=== PATIENT | female | born 1980 | race Native Hawaiian/Other Pacific Islander ===

== ENCOUNTER 2016-11-18 04:10 | Inpatient (IN) | payer OTHER ==
[2016-11-18] VITALS (19 sets, daily range): BP systolic 113–159; BP diastolic 70–100; PULSE 76–108; TEMP 98.3–98.8
[~2016-11-18] VITALS: Ht 160 cm; Wt 111.8 kg
[2016-11-18] MEDS ORDERED: PRENATAL (04:44)
[2016-11-18 05:18] LABS: BASO % 0.2 % (0.0-2.0); EOS # 0.2 (0.0-0.7); EOS % 1.5 % (0-4.0); GRAN # 11.1 (1.4-6.5); GRAN % 76.9 % (42.2-75.2); HEMOGLOBIN 12.3 g/dl (12.5-16.0); MEAN CELL VOLUME 92 fl (80.0-100.0); MEAN CORPUSCULAR HEMOGLOBIN 32 pg (27.0-31.0); MEAN CORPUSCULAR HGB CONC 34 g/dl (33.0-37.0); MEAN PLATELET VOLUME 9.4 fl (7.4-10.4); MONO # 0.9 (0.1-0.6); MONO % 6.4 % (1.7-9.3); PLATELET COUNT 314 K/mm3 (130-400); RED BLOOD COUNT 3.91 M/mm3 (4.10-5.30); REDCELL DISTRIBUTION WIDTH-CV 13.5 % (11.5-14.5); WHITE BLOOD COUNT 14.4 K/mm3 (4.8-10.8)
[2016-11-18 05:19] LABS: HEMATOCRIT 35.9 % (37.0-47.0)
[2016-11-19 04:30] VITALS: BP 138/76; PULSE 68; TEMP 98.5
[2016-11-19 07:00] VITALS: BP 139/94; PULSE 104; TEMP 98.1
[2016-11-19 08:34] LABS: BASO % 0.1 % (0.0-2.0); EOS # 0.1 (0.0-0.7); EOS % 0.7 % (0-4.0); GRAN # 12.2 (1.4-6.5); GRAN % 80.6 % (42.2-75.2); LYMPH # 1.8 (1.2-3.4); LYMPH % 11.7 % (20.0-51.0); MEAN CELL VOLUME 96 fl (80.0-100.0); MEAN CORPUSCULAR HGB CONC 33 g/dl (33.0-37.0); MEAN PLATELET VOLUME 9.4 fl (7.4-10.4); MONO # 0.9 (0.1-0.6); MONO % 5.6 % (1.7-9.3); PLATELET COUNT 258 K/mm3 (130-400); RED BLOOD COUNT 2.96 M/mm3 (4.10-5.30); WHITE BLOOD COUNT 15.2 K/mm3 (4.8-10.8)
[2016-11-19 08:44] LABS: HEMATOCRIT 28.3 % (37.0-47.0); HEMOGLOBIN 9.4 g/dl (12.5-16.0); MEAN CORPUSCULAR HEMOGLOBIN 32 pg (27.0-31.0)
[2016-11-20 07:00] VITALS: BP 145/90; PULSE 95; TEMP 98.7
[2016-11-20] MEDS ORDERED: PERCOCET 325 MG1 TA2 PO (12:02)
[2016-11-20] MEDS ORDERED: IBU600 MG PO (12:02)
== END 2016-11-20 13:30 | disposition home or self-care (01) | DRG 766 ==
LOC: LDRO 04:10 → OB 04:30 → LDR 04:30 → OB 07:20
PROVIDERS: Nurse Anesthetist, Certified Registered; Obstetrics & Gynecology
PROC: 10D00Z1 Extraction of Products of Conception, Low, Open Approach (ICD-10-PCS; principal; 2016-11-18)
DX: O75.82 Onset (spontaneous) of labor after 37 completed weeks of gestation but before 39 completed weeks gestation, with delivery by (planned) cesarean section (principal); O34.211 Maternal care for low transverse scar from previous cesarean delivery; N85.8 Other specified noninflammatory disorders of uterus; O99.824 Streptococcus B carrier state complicating childbirth; Z3A.38 38 weeks gestation of pregnancy; Z37.0 Single live birth
CPT/HCPCS: J0690; J1885; J2270; J2370; J2405; J2540; J2590; J2765; J3010; J7120

== ENCOUNTER 2019-06-16 17:05 | Inpatient (IN) | payer OTHER ==
[~2019-06-16] VITALS: Ht 160 cm; Wt 102.1 kg
[~2019-06-16 17:05] MED LIST: IBU600 MG PO; PERCOCET 325 MG1 TA2 PO; PRENATAL
[2019-06-16 17:44] LABS: COLLECTION METHOD CLEAN CATCH
[2019-06-16 17:50] LABS: HEMATOCRIT 40.5 % (37.0-47.0); HEMOGLOBIN 14.2 g/dl (12.5-16.0); MEAN CELL VOLUME 90 fl (80.0-100.0); MEAN CORPUSCULAR HEMOGLOBIN 32 pg (27.0-31.0); MEAN CORPUSCULAR HGB CONC 35 g/dl (33.0-37.0); MEAN PLATELET VOLUME 10.1 fl (7.4-10.4); PLATELET COUNT 312 K/mm3 (130-400); RED BLOOD COUNT 4.48 M/mm3 (4.10-5.30); REDCELL DISTRIBUTION WIDTH-CV 12.7 % (11.5-14.5)
[2019-06-16 18:02] LABS: ALANINE AMINOTRANSFERASE 142 U/L (9-52); ALBUMIN 3.7 gm/dL (3.5-5.0); ALKALINE PHOSPHATASE 321 U/L (50-136); ANION GAP 12 mmol/L (7-16); AST,SGOT 124 U/L (15-37); BILIRUBIN,TOTAL 9.3 mg/dL (0.0-1.0); BLOOD UREA NITROGEN 10 mg/dL (7-17); CARBON DIOXIDE 28 mmol/L (22-30); CHLORIDE 93 mmol/L (98-107); CREATININE, serum 0.64 (0.52-1.25); GLUCOSE 137 mg/dL (74-106); LIPASE 298 U/L (23-300); SODIUM 133 mmol/L (137-145); TOTAL PROTEIN 8.8 gm/dL (6.4-8.2)
[2019-06-16 18:05] LABS: ACETAMINOPHEN < 10 ug/mL (10-30); POTASSIUM 2.8 mmol/L (3.4-5.0)
[2019-06-16 18:06] LABS: MONOSCREEN NEGATIVE
[2019-06-16 18:06] LABS: PH 7 (5-8); SQUAMOUS EPITHELIAL 0-2 /hpf; URINE APPEARANCE Clear; URINE BACTERIA Rare /hpf; URINE BILIRUBIN Positive (NEGATIVE); URINE BLOOD 2+ (NEGATIVE); URINE COLOR Amber; URINE GLUCOSE Negative (NEGATIVE); URINE KETONE Negative (NEGATIVE); URINE LEUKOCYTE ESTERASE Negative (NEGATIVE); URINE NITRATE Negative (NEGATIVE); URINE PROTEIN(semi-quant) Negative (NEGATIVE); URINE RBC 0-2 /hpf
[2019-06-16 18:07] LABS: INR 1.1 (0.8-3.0); PROTHROMBIN TIME 12.7 SECONDS (9.7-12.8)
[2019-06-16 18:09] LABS: PARTIAL THROMBOPLASTIN TIME 31.4 SECONDS (26.0-37.0)
[2019-06-16 19:38] LABS: BAND 5 % (0-10); NEUTROPHILS 76 % (42.0-75.2)
[2019-06-16 19:40] LABS: LYMPHOCYTE 14 % (20.0-51.0); PLATELET ESTIMATE NORMAL (NORMAL)
[2019-06-16 21:52] VITALS: BP 106/55; PULSE 89; TEMP 98.4
--- NOTE | 2019-06-16 23:04 | NUR ---
Received report from AUDREY Moseley from ED. Pt arrived at 0 via wc. Assessment complete. Alert and oriented. Denies any pain or nausea at this time. Family at bedside. IV to RAC intact with fluids infusing. Needs met. Call light within reach.
[2019-06-17] VITALS (7 sets, daily range): BP systolic 77–107; BP diastolic 50–71; PULSE 58–99; TEMP 97.6–98.3
--- NOTE | 2019-06-17 05:31 | NUR ---
Pt uneventful during this shift. remained at bedside. Meds administered as ordered. Call light within reach.
[2019-06-17 06:32] LABS: INR 1.1 (0.8-3.0); PROTHROMBIN TIME 12.5 SECONDS (9.7-12.8)
[2019-06-17 06:52] LABS: ALBUMIN 3.1 gm/dL (3.5-5.0); CALCIUM 8.3 mg/dL (8.4-10.2); CREATININE, serum 0.56 (0.52-1.25); POTASSIUM 4.1 mmol/L (3.4-5.0); TOTAL PROTEIN 7.4 gm/dL (6.4-8.2)
[2019-06-17 06:56] LABS: HEMATOCRIT 37.2 % (37.0-47.0); HEMOGLOBIN 12.9 g/dl (12.5-16.0); MEAN CELL VOLUME 93 fl (80.0-100.0); MEAN CORPUSCULAR HEMOGLOBIN 32 pg (27.0-31.0); MEAN CORPUSCULAR HGB CONC 35 g/dl (33.0-37.0); MEAN PLATELET VOLUME 10.2 fl (7.4-10.4); PLATELET COUNT 242 K/mm3 (130-400); RED BLOOD COUNT 4.02 M/mm3 (4.10-5.30); REDCELL DISTRIBUTION WIDTH-CV 13.1 % (11.5-14.5)
[2019-06-17 07:07] LABS: BILIRUBIN,DIRECT 6.7 mg/dL (0.0-0.4); BILIRUBIN,TOTAL 7.6 mg/dL (0.0-1.0)
--- NOTE | 2019-06-17 07:09 | NUR ---
Report given to AUDREY Harp and AUDREY Joshi.
--- NOTE | 2019-06-17 07:20 | NUR ---
Seem patient awake sitting on bed. MRI staff already in the room to pick her up for MRCP. Patient still has nose piercing in which needed to be removed before the procedure. MRI staff said we just have to re-schedule it since we're still having a hard time removing her piercing. After few minutes, Nurse Katiuska was able to remove it and called MRI staff that patient is already ready for the procedure. Patient is in hospital's gown, no jewelries and metals in her body.
--- NOTE | 2019-06-17 08:30 | NUR ---
Patient was back to her room via wheelchair assisted by staff. Patient tolerated the procedure well.
[2019-06-17 08:44] LABS: BAND 8 % (0-10); EOSINOPHIL 1 % (0-4); LYMPHOCYTE 26 % (20.0-51.0); NEUTROPHILS 55 % (42.0-75.2); PLATELET ESTIMATE NORMAL (NORMAL)
--- NOTE | 2019-06-17 10:32 | NUR ---
KRYSTAL met with the patient to discuss a discharge plan. The patient lives in [place] with her and their children. The patient does not use DME and reports independence with ADLs. The patient does not have a PCP. A list of [facility] physicians was provided. The patient receives medications from [facility] in with no difficulties. The patient does not have advanced directives in the EMR but was interested in a [id number]. Form provided. The patient plans to return home upon discharge with providing transportation. There are no additional needs at this time.
--- NOTE | 2019-06-17 11:04 | NUR ---
Initial visit; Patient thanked Lap Welder for looking in on her and offering spiritual care. Lap Welder later changed her hoahaoism affiliation per request to [employer] so she would be offered Holy Communion provided by Deacodie from the [employer].
--- NOTE | 2019-06-17 18:17 | NUR ---
Patient is afebrile, denies any pain. She had her shower and was able to walk to the bathroom independently.
--- NOTE | 2019-06-17 19:20 | NUR ---
Patient assessed at this time. Alert and oriented x 4, and able to make needs known. Denies having pain and discomfort. Peripheral IV to right AC with fluids running at 100 ml/hr. Site is without redness, warmth, swelling, and pain. Denies having SOB and dyspnea. LS CTA. Respirations even and unlabored. HRR. Capillary refill less than 3 seconds. Non-tenting skin turgor. BSAx4. Abdomen soft and non-tender. 1+ edema BLE and BUE. Voices no questions, needs, or concerns at this time. In bed watching TV at this time. Call light is within reach.
[2019-06-18 04:11] VITALS: BP 91/51; PULSE 86; TEMP 98.4
--- NOTE | 2019-06-18 04:22 | NUR ---
Patient has been resting in bed with eyes closed. Voices no questions, needs, or concerns. Recieved IV ABXs per ordres. No adverse reactions noted, such as rash, vomiting, or diarrhea. Continues to have NS with 40 meq KCL running at 100 ml/hr to peripheral IV to right AC. Call light is within reach.
[2019-06-18 06:26] LABS: HEMOGLOBIN 11.8 g/dl (12.5-16.0); MEAN CELL VOLUME 95 fl (80.0-100.0); MEAN CORPUSCULAR HEMOGLOBIN 32 pg (27.0-31.0); MEAN CORPUSCULAR HGB CONC 34 g/dl (33.0-37.0); PLATELET COUNT 293 K/mm3 (130-400); RED BLOOD COUNT 3.71 M/mm3 (4.10-5.30); REDCELL DISTRIBUTION WIDTH-CV 13.6 % (11.5-14.5)
[2019-06-18 06:28] LABS: HEMATOCRIT 35.2 % (37.0-47.0)
[2019-06-18 06:45] LABS: ALBUMIN 2.8 gm/dL (3.5-5.0); BILIRUBIN,TOTAL 6.5 mg/dL (0.0-1.0); CALCIUM 8.1 mg/dL (8.4-10.2); CREATININE, serum 0.48 (0.52-1.25); POTASSIUM 4.5 mmol/L (3.4-5.0); TOTAL PROTEIN 7.1 gm/dL (6.4-8.2)
[2019-06-18 08:17] VITALS: BP 104/75; PULSE 82; TEMP 97.6
[2019-06-18 08:52] LABS: BAND 15 % (0-10); EOSINOPHIL 2 % (0-4); MYELOCYTE 2 % (0-0); NEUTROPHILS 48 % (42.0-75.2)
[2019-06-18 08:53] LABS: LYMPHOCYTE 26 % (20.0-51.0); PLATELET ESTIMATE NORMAL (NORMAL)
[2019-06-18] MEDS ORDERED: OMNICEF 300MG300 MG PO (09:55)
--- NOTE | 2019-06-18 11:15 | NUR ---
DISCHARGE INFORMATION PROVIDED. IV REMOVED WITHOUT ISSUE. NO QUESTIONS ASKED.
--- NOTE | 2019-06-18 11:19 | NUR ---
INTEL RECRUITER ESCORTING PT ADAM AT THIS TIME.
[2019-06-18 20:53] LABS: HEPATITIS B CORE AB,TOTAL Negative (()); HEPATITIS B SURFACE ANTIBODY <2.0 (())
[2019-06-20 00:45] LABS: HEPATITIS AB (HAV) IGG INDEX 1.36 Index (<=1.00)
== END 2019-06-18 11:19 | disposition home or self-care (01) | DRG 443 ==
LOC: COL.ER 17:05 → MEDICAL 20:04 → EDBEDREQ 20:46 → MEDICAL 06-18 11:19
PROVIDERS: Internal Medicine Gastroenterology; Nurse Practitioner Family; Physician Assistant; ADMIT Internal Medicine
DX: B17.9 Acute viral hepatitis, unspecified (principal); F17.210 Nicotine dependence, cigarettes, uncomplicated; E87.6 Hypokalemia; H66.92 Otitis media, unspecified, left ear; I95.9 Hypotension, unspecified; Z88.0 Allergy status to penicillin; Z90.49 Acquired absence of other specified parts of digestive tract
CPT/HCPCS: 99222-AI; 99232-AI; 99239; A4216; J0696; J2405; J3480; J7030; J7040; Q9967

== ENCOUNTER 2019-06-26 19:07 | Emergency (ER) | payer OTHER ==
[~2019-06-26] VITALS: Ht 160 cm; Wt 104.5 kg
[~2019-06-26 19:07] MED LIST changes: +OMNICEF 300MG300 MG PO
[2019-06-26 19:16] VITALS: TEMP 100.6
[2019-06-26 20:00] LABS: HEMOGLOBIN 12.1 g/dl (12.5-16.0); MEAN CELL VOLUME 97 fl (80.0-100.0); MEAN CORPUSCULAR HEMOGLOBIN 32 pg (27.0-31.0); MEAN CORPUSCULAR HGB CONC 33 g/dl (33.0-37.0); MEAN PLATELET VOLUME 9.1 fl (7.4-10.4); PLATELET COUNT 410 K/mm3 (130-400); RED BLOOD COUNT 3.78 M/mm3 (4.10-5.30); REDCELL DISTRIBUTION WIDTH-CV 13.8 % (11.5-14.5)
[2019-06-26 20:07] LABS: ALBUMIN 3.8 gm/dL (3.5-5.0); BILIRUBIN,TOTAL 4.2 mg/dL (0.0-1.0); CALCIUM 9.3 mg/dL (8.4-10.2); CREATININE, serum 0.65 (0.52-1.25); POTASSIUM 3.6 mmol/L (3.4-5.0); TOTAL PROTEIN 8.3 gm/dL (6.4-8.2)
[2019-06-26 20:15] LABS: HEMATOCRIT 36.8 % (37.0-47.0)
[2019-06-26 20:40] LABS: COLLECTION METHOD CLEAN CATCH
[2019-06-26 20:51] LABS: BAND 17 % (0-10); EOSINOPHIL 1 % (0-4); LYMPHOCYTE 2 % (20.0-51.0); NEUTROPHILS 76 % (42.0-75.2); PLATELET ESTIMATE INCREASED (NORMAL)
[2019-06-26 21:05] LABS: MUCOUS Present /lpf; PH 5 (5-8); URINE APPEARANCE Cloudy; URINE BACTERIA Rare /hpf; URINE BILIRUBIN Positive (NEGATIVE); URINE BLOOD 1+ (NEGATIVE); URINE COLOR Amber; URINE GLUCOSE Negative (NEGATIVE); URINE KETONE Negative (NEGATIVE); URINE LEUKOCYTE ESTERASE Negative (NEGATIVE); URINE NITRATE Negative (NEGATIVE); URINE PROTEIN(semi-quant) 1+ (NEGATIVE); URINE RBC 0-2 /hpf; URINE UROBILINOGEN >=4.0 mg/dL (NEGATIVE)
[2019-06-26 22:15] VITALS: BP 106/57; PULSE 115
== END 2019-06-26 22:40 | disposition short-term general hospital (02) ==
LOC: COL.ER 19:07
PROVIDERS: Emergency Medicine
DX: J11.1 Influenza due to unidentified influenza virus with other respiratory manifestations (principal); R17 Unspecified jaundice; Z90.49 Acquired absence of other specified parts of digestive tract
CPT/HCPCS: J0692; J1885; J7030

== ENCOUNTER 2019-07-04 19:10 | Emergency (ER) | payer OTHER ==
[~2019-07-04] VITALS: Ht 160 cm; Wt 101.4 kg
[~2019-07-04 19:10] MED LIST changes: +ALEVE 220MG220 MG PO
[2019-07-04 19:24] VITALS: TEMP 97.8
[2019-07-04 20:07] LABS: HEMOGLOBIN 11.5 g/dl (12.5-16.0); MEAN CELL VOLUME 97 fl (80.0-100.0); MEAN CORPUSCULAR HEMOGLOBIN 31 pg (27.0-31.0); MEAN CORPUSCULAR HGB CONC 32 g/dl (33.0-37.0); MEAN PLATELET VOLUME 9.2 fl (7.4-10.4); PLATELET COUNT 466 K/mm3 (130-400); RED BLOOD COUNT 3.69 M/mm3 (4.10-5.30); REDCELL DISTRIBUTION WIDTH-CV 13.2 % (11.5-14.5)
[2019-07-04 20:18] LABS: HEMATOCRIT 35.8 % (37.0-47.0)
[2019-07-04 20:27] LABS: ALANINE AMINOTRANSFERASE 14 U/L (9-52); ALBUMIN 3.8 gm/dL (3.5-5.0); ALKALINE PHOSPHATASE 157 U/L (50-136); ANION GAP 8 mmol/L (7-16); AST,SGOT 33 U/L (15-37); BILIRUBIN,TOTAL 0.8 mg/dL (0.0-1.0); BLOOD UREA NITROGEN 5 mg/dL (7-17); CALCIUM 9.3 mg/dL (8.4-10.2); CARBON DIOXIDE 26 mmol/L (22-30); CHLORIDE 103 mmol/L (98-107); CREATININE, serum 0.48 (0.52-1.25); GLUCOSE 107 mg/dL (74-106); POTASSIUM 3.9 mmol/L (3.4-5.0); SODIUM 137 mmol/L (137-145); TOTAL PROTEIN 8.4 gm/dL (6.4-8.2)
[2019-07-04 20:41] LABS: TROPONIN-I < 0.012 ng/mL (0.000-0.035)
[2019-07-04 21:11] LABS: BAND 9 % (0-10); EOSINOPHIL 4 % (0-4); LYMPHOCYTE 16 % (20.0-51.0); METAMYELOCYTE 2 % (0-0); MYELOCYTE 2 % (0-0); NEUTROPHILS 58 % (42.0-75.2); PLATELET ESTIMATE INCREASED (NORMAL)
[2019-07-04 21:30] VITALS: BP 129/90; PULSE 70
[2019-07-04] MEDS ORDERED: TOPROL XL 25MG25 MG PO (21:33)
[2019-07-05] MEDS ORDERED: ROCEPHIN 2GM VIAL21 IV (09:41)
[2019-07-05] MEDS ORDERED: ZOVIRAX800 MG PO (10:38)
[2019-07-07 09:56] LABS: PATHOLOGY DIFF REVIEW OK
== END 2019-07-04 21:40 | disposition home or self-care (01) ==
LOC: COL.ER 19:10
PROVIDERS: Emergency Medicine
DX: I49.3 Ventricular premature depolarization (principal); R00.8 Other abnormalities of heart beat

== ENCOUNTER 2019-07-05 09:36 | Emergency (ER) | payer OTHER ==
[~2019-07-05] VITALS: Ht 160 cm; Wt 101.4 kg
[~2019-07-05 09:36] MED LIST changes: +TOPROL XL 25MG25 MG PO
[2019-07-05 09:37] VITALS: TEMP 98.5
[2019-07-05] MEDS ORDERED: ROCEPHIN 2GM VIAL21 IV (09:41)
[2019-07-05] MEDS ORDERED: ZOVIRAX800 MG PO (10:38)
[2019-07-05 11:20] VITALS: BP 117/53; PULSE 85
== END 2019-07-05 11:23 | disposition home or self-care (01) ==
LOC: COL.ER 09:36
DX: G51.0 Bell's palsy (principal)
CPT/HCPCS: J0696

== ENCOUNTER 2019-07-09 09:30 | Outpatient (RCR) | payer OTHER ==
--- NOTE | 2019-07-03 11:00 | NUR ---
Midline intact right upper arm just above AC area. dressing dated 07/01/2019. Patient reported midline placed on 07/01 and chlorahexidine gel present. no signs or symptoms of IV complications noted. no concerns voiced.
[2019-07-03 11:07] VITALS: BP 119/67; PULSE 90; TEMP 98.4
[2019-07-04 10:16] VITALS: BP 100/74; PULSE 92; TEMP 98.7
--- NOTE | 2019-07-05 09:45 | NUR ---
Pt and SO came in today for daily ABX of Rocephin. Pt ambulated slowly to rm 13 and was seated in chair. Pt stated she went to the ER last night because her "heart was racing". Pt stated they took EKG, gave her a pill and something through her IV line. Pt's face was drooping significantly on the left side. Pt stated her symptoms began around 8am, when she awoke this morning and looked in the mirror. She complains of a posterior head pain and her voice sounds as if it is "echoing". She denies dizziness or blurred vision. VSS. This RN called ER charge, AUDREY Vallecillo to notify her of pt's symptoms. Pt was taken over to ER RM 8. Report given to AUDREY Vallecillo along with her current file here in [facility] for additional history.
[2019-07-06 09:23] VITALS: BP 106/65; PULSE 97; TEMP 98.9
[2019-07-07 10:30] VITALS: BP 117/94; PULSE 95; TEMP 99.2
[2019-07-07 10:32] LABS: HEMATOCRIT 39.3 % (37.0-47.0); HEMOGLOBIN 12.9 g/dl (12.5-16.0); MEAN CELL VOLUME 97 fl (80.0-100.0); MEAN CORPUSCULAR HEMOGLOBIN 32 pg (27.0-31.0); MEAN CORPUSCULAR HGB CONC 33 g/dl (33.0-37.0); MEAN PLATELET VOLUME 8.9 fl (7.4-10.4); RED BLOOD COUNT 4.06 M/mm3 (4.10-5.30); REDCELL DISTRIBUTION WIDTH-CV 13.2 % (11.5-14.5)
[2019-07-07 10:35] LABS: PLATELET COUNT 571 K/mm3 (130-400)
[2019-07-07 10:47] LABS: ALBUMIN 4.1 gm/dL (3.5-5.0); BILIRUBIN,TOTAL 0.7 mg/dL (0.0-1.0); C-REACTIVE PROTEIN 1.8 mg/dL (0.0-0.9); CALCIUM 9.8 mg/dL (8.4-10.2); CREATININE, serum 0.49 (0.52-1.25); POTASSIUM 4.4 mmol/L (3.4-5.0); TOTAL PROTEIN 9.1 gm/dL (6.4-8.2)
[2019-07-08 09:40] VITALS: BP 124/79; PULSE 96; TEMP 98.5
--- NOTE | 2019-07-08 09:45 | NUR ---
Midline intact right upper arm with sterile dressing change done with insertion site cleansed with chloraprep x 1, chlorhexidine impregnated disk applied, skin prep, stat lock, and tegaderm applied. no signs or symptoms of IV complications noted. no concerns voiced. to continue with cares in [place]. voiced understanding of instructions.
[~2019-07-09] VITALS: Ht 160 cm; Wt 100.0 kg
[~2019-07-09 09:30] MED LIST changes: +ROCEPHIN 2GM VIAL21 IV; +ZOVIRAX800 MG PO
[2019-07-09 09:53] VITALS: BP 127/85; PULSE 90; TEMP 98.3
== END 2019-07-09 11:39 | disposition home or self-care (01) ==
LOC: EUO 09:30
PROVIDERS: Internal Medicine
DX: A54.00 Gonococcal infection of lower genitourinary tract, unspecified (principal); A41.9 Sepsis, unspecified organism; R70.0 Elevated erythrocyte sedimentation rate; M19.90 Unspecified osteoarthritis, unspecified site; D72.829 Elevated white blood cell count, unspecified; E80.6 Other disorders of bilirubin metabolism; Z90.49 Acquired absence of other specified parts of digestive tract
CPT/HCPCS: J0696

== ENCOUNTER 2024-01-24 19:37 | Emergency (ER) | payer OTHER ==
[~2024-01-24] VITALS: Ht 160 cm; Wt 104.5 kg
[2024-01-24 19:44] VITALS: TEMP 98
[2024-01-24] MEDS ORDERED: Morphine 4 MG/ML VIAL IV ONE (20:00)
[2024-01-24] MEDS ORDERED: Ondansetron 4 MG/2 ML VIAL IV ONE (20:00)
[2024-01-24 20:21] LABS: BASO % 0.2 % (0.0-2.0); EOS # 0.1 K/mm3 (0.0-0.7); EOS % 0.8 % (0.0-4.0); GRAN # 6.9 K/mm3 (1.4-6.5); GRAN % 71.4 % (42.2-75.2); HEMATOCRIT 41.5 % (37.0-47.0); HEMOGLOBIN 14.2 g/dl (12.5-16.0); LYMPH # 2.1 K/mm3 (1.2-3.4); LYMPH % 21.7 % (20.0-51.0); MEAN CELL VOLUME 99 fl (80.0-100.0); MEAN CORPUSCULAR HEMOGLOBIN 34 pg (27-31); MEAN CORPUSCULAR HGB CONC 34 g/dl (33.0-37.0); MEAN PLATELET VOLUME 9.2 fl (7.4-10.4); MONO # 0.5 K/mm3 (0.1-0.6); MONO % 5.5 % (1.7-9.3); PLATELET COUNT 315 K/mm3 (130-400); RED BLOOD COUNT 4.21 M/mm3 (4.10-5.30); REDCELL DISTRIBUTION WIDTH-CV 11.7 % (11.5-14.5)
[2024-01-24 20:38] LABS: ALBUMIN 4.3 g/dL (3.5-5.0); BILIRUBIN,TOTAL 0.7 mg/dL (0.2-1.2); CALCIUM 9.8 mg/dL (8.4-10.2); CREATININE, serum 0.69 mg/dL (0.57-1.11); POTASSIUM 4.1 mEq/L (3.5-4.5); TOTAL PROTEIN 7.7 g/dl (6.2-8.1)
[2024-01-24] MEDS ORDERED: Home HYDROcodone/Acetaminophen 5/325 MG #4 TABS/PACK PO ONE (21:45)
[2024-01-24 23:01] VITALS: BP 124/70; PULSE 64
== END 2024-01-24 23:14 | disposition home or self-care (01) ==
LOC: COL.ER 19:37
PROVIDERS: Family Medicine
DX: O20.0 Threatened abortion (principal); O09.521 Supervision of elderly multigravida, first trimester
CPT/HCPCS: J2270; J2405